=== PATIENT | female | born 1990 | race Caucasian/White ===

== ENCOUNTER 2018-08-12 18:10 | Emergency (ER) | payer OTHER ==
[2018-08-12 18:42] LABS: BILIRUBIN,URINE NEGATIVE (NEGATIVE); GLUCOSE, URINE (UA) NEGATIVE (NEGATIVE); KETONES,URINE (UA) NEGATIVE (NEGATIVE); LEUKOCYTE ESTERASE, URINE NEGATIVE (NEGATIVE); NITRITE,URINE NEGATIVE (NEGATIVE); OCCULT BLOOD,URINE NEGATIVE (NEGATIVE); PH,URINE 5.5 PH (5.0-7.5); PROTEIN,URINE NEGATIVE (NEGATIVE); UROBILINOGEN,URINE 0.2 (NORMAL) E.U./dL (NORMAL)
[2018-08-12 18:44] LABS: CLARITY,URINE CLEAR (CLEAR); HCG UR QUAL NEGATIVE
--- NOTE | 2018-08-12 18:44 | ED Physician Documentation ---
History of Present Illness - Stated complaint Stated Complaint: CHEST PX - Chief complaint Chief Complaint: General - History obtained from History obtained from: Patient - History of Present Illness Timing: Today (27-year-old woman with no significant past medical history presents with chest pain that started today around noon after a stressful conversation. It is a sharp pain that involves the right costochondral junction and is worse with twisting motions of the thorax but not deep breathing. There is no associated cough, shortness of breath, pedal edema, calf pain, she traveled by air but it has been about a month. There is no fevers.) Review of Systems Constitutional: denies: Fever, Chills Cardiac: denies: Palpitations, Pedal edema, Calf pain Respiratory: denies: Dyspnea, Cough, Hemoptysis, Wheezing PD PAST MEDICAL HISTORY - Present Medications Home Medications: Ambulatory Orders Medication Instructions Recorded Confirmed No Known Home Medications 08/12/18 08/12/18 - Allergies Allergies/Adverse Reactions: Allergies Allergy/AdvReac Type Severity Reaction Status Date / Time No Known Drug Allergies Allergy Verified 08/12/18 18:25 PD ED PE NORMAL - Vitals Vital signs reviewed: Yes - General General: Alert and oriented X 3, No acute distress - HEENT HEENT: PERRL, EOMI - Neck Neck: Supple, no meningeal sign, No bony TTP - Cardiac Cardiac: RRR, No murmur - Respiratory Respiratory: No respiratory distress, Clear bilaterally - Abdomen Abdomen: Non tender - Extremities Extremities: No edema, No calf tenderness / cord - Neuro Neuro: Alert and oriented X 3, Normal speech Results - Vitals Vitals: Vital Signs - 24 hr 08/12/18 08/12/18 18:21 20:17 Temperature 36.7 C 36.7 C Heart Rate 80 73 Respiratory 14 16 Rate Blood Pressure 127/83 H 112/74 O2 Saturation 99 100 Oxygen O2 Source Room air - EKG (time done) 1816 Rate: Rate (enter#) (84) Rhythm: NSR [place]: Normal Intervals: Normal VA QRS: Normal Ischemia: Normal ST segments Computer interpretation: Agree with computer - Labs Labs: Laboratory Tests 08/12/18 08/12/18 08/12/18 18:30 19:05 19:05 WBC 7.7 RBC 4.47 Hgb 13.1 Hct 39.6 MCV 88.6 MCH 29.4 MCHC 33.2 RDW 12.5 Plt Count 188 MPV 9.3 Neut # (Auto) 4.2 Lymph # (Auto) 2.7 [place] # (Auto) 0.6 Eos # (Auto) 0.2 Baso # (Auto) 0.0 Absolute Nucleated RBC 0.00 Nucleated RBC % 0.1 Sodium 140 Potassium 3.4 L Chloride 106 Carbon Dioxide 25 Anion Gap 9.0 BUN 20 Creatinine 0.8 Estimated GFR (MDRD) 86 L Glucose 85 Calcium 9.1 Total Bilirubin 0.6 AST 18 ALT 17 Alkaline Phosphatase 43 Troponin I Total Protein 7.9 Albumin 4.4 Globulin 3.5 Albumin/Globulin Ratio 1.3 Lipase 35 Urine Color YELLOW Urine Clarity CLEAR Urine pH 5.5 Ur Specific [place] >=1.030 H Urine Protein NEGATIVE Urine Glucose (UA) NEGATIVE Urine Ketones NEGATIVE Urine Occult Blood NEGATIVE Urine Nitrite NEGATIVE Urine Bilirubin NEGATIVE Urine Urobilinogen 0.2 (NORMAL) Ur Leukocyte Esterase NEGATIVE Ur Microscopic Review NOT INDICATED Urine Culture Comments NOT INDICATED Urine HCG, Qual NEGATIVE 08/12/18 19:05 WBC RBC Hgb Hct MCV MCH MCHC RDW Plt Count MPV Neut # (Auto) Lymph # (Auto) [place] # (Auto) Eos # (Auto) Baso # (Auto) Absolute Nucleated RBC Nucleated RBC % Sodium Potassium Chloride Carbon Dioxide Anion Gap BUN Creatinine Estimated GFR (MDRD) Glucose Calcium Total Bilirubin AST ALT Alkaline Phosphatase Troponin I < 0.04 Total Protein Albumin Globulin Albumin/Globulin Ratio Lipase Urine Color Urine Clarity Urine pH Ur Specific [place] Urine Protein Urine Glucose (UA) Urine Ketones Urine Occult Blood Urine Nitrite Urine Bilirubin Urine Urobilinogen Ur Leukocyte Esterase Ur Microscopic Review Urine Culture Comments Urine HCG, Qual - Rads (name of study) 2v chest Radiology: EMP read contemporaneously (normal) PD MEDICAL DECISION MAKING - ED course ED course: 27-year-old woman with chest pain that sounds most like costochondritis but cannot really reproduce it on exam. Started after a stressful event. There is no overt evidence of cardiac or pulmonary abnormality on exam or diagnostics. I considered pulmonary embolism in this patient. Clinically the pretest probability of pulmonary embolism is less than 15%. I applied to the PERC rules as follows: The patient's age is under 50, heart rate less than 100, oxygen saturation greater than 94%, the patient does not have a history of DVT or PE. Patient has no recent trauma or surgery. The patient has no hemoptysis. The patient is not on exogenous estrogens. The patient does not have clinical signs suggesting DVT. As such the patient ruled out for pulmonary embolism by PERC criteria. Departure - Departure Disposition: 01 Home, Self Care Clinical Impression: Chest pain Condition: Good Record reviewed to determine appropriate education?: Yes Instructions: ED Chest Pain NonCardiac Comments: Ibuprofen as needed for pain, follow-up with your doctor, next available appointment. Return for new or worsening symptoms. Your blood pressure was elevated today on check into the emergency department. This does not mean that you have hypertension, it is a common phenomenon to come to the emergency department and have elevated blood pressure. I recommend that you see your primary care physician within the week to have it rechecked when y ou are feeling better. Discharge Date/Time: 08/12/18 20:20
--- NOTE | 2018-08-12 19:09 | XRAY Report ---
Reason: chest pain Procedure Date: 08/12/2018 Accession Number: [id number] / [id number] Procedure: XR - Chest 2 View X-Ray CPT Code: 62901 FULL RESULT: EXAM: CHEST RADIOGRAPHY EXAM DATE: 08/12/2018 06:53 PM. CLINICAL HISTORY: Chest pain. COMPARISON: None. TECHNIQUE: 2 views. FINDINGS: Lungs/Pleura: No focal opacities evident. No pleural effusion. No pneumothorax. Normal volumes. Mediastinum: Heart and mediastinal contours are unremarkable. Other: None. IMPRESSION: Normal 2-view chest radiography. RADIA
[2018-08-12 19:10] LABS: BASOPHILS % (AUTO) 0.3 %; EOSINOPHILS # (AUTO) 0.2 10^3/uL (0.0-0.7); EOSINOPHILS % (AUTO) 2.2 %; HGB - HEMOGLOBIN 13.1 g/dL (12.0-16.0); LYMPHOCYTES # (AUTO) 2.7 10^3/uL (1.5-3.5); LYMPHOCYTES % (AUTO) 34.6 %; MEAN CORPUSCULAR HEMOGLOBIN 29.4 pg (27.0-31.0); MEAN CORPUSCULAR HGB CONC 33.2 g/dL (32.0-36.0); MEAN CORPUSCULAR VOLUME 88.6 fL (81.0-99.0); MEAN PLATELET VOLUME 9.3 fL (7.9-10.8); MONOCYTES # (AUTO) 0.6 10^3/uL (0.0-1.0); MONOCYTES % (AUTO) 8.5 %; NEUTROPHILS # (AUTO) 4.2 10^3/uL (1.5-6.6); NEUTROPHILS % (AUTO) 54.4 %; PLT - PLATELET COUNT 188 10^3/uL (130-450); RED BLOOD COUNT 4.47 10^6/uL (4.20-5.40); RED CELL DISTRIBUTION WIDTH 12.5 % (12.0-15.0); WHITE BLOOD COUNT 7.7 x10^3/uL (4.8-10.8)
[2018-08-12 19:22] LABS: ALBUMIN 4.4 g/dL (3.2-5.5); ALBUMIN/GLOBULIN RATIO 1.3 (1.0-2.2); BILIRUBIN,TOTAL 0.6 mg/dL (0.2-1.0); CALCIUM 9.1 mg/dL (8.5-10.3); CREATININE 0.8 mg/dL (0.4-1.0); TOTAL PROTEIN 7.9 g/dL (6.7-8.2)
[2018-08-12 20:23] VITALS: BP 112/74
== END 2018-08-12 20:20 | disposition home or self-care (01) ==
LOC: ED 18:10
DX: R07.9 Chest pain, unspecified (principal); R03.0 Elevated blood-pressure reading, without diagnosis of hypertension
CPT/HCPCS: 36415; 71046; 80053; 81001; 81003; 81025; 83690; 84484; 85025; 87086; 93005; 99283

== ENCOUNTER 2019-08-04 12:49 | Emergency (ER) | payer OTHER ==
--- NOTE | 2019-08-04 14:24 | ED Physician Documentation ---
PD HPI UPPER EXT INJURY - Stated complaint Stated Complaint: SHOULDER PX - Chief complaint Chief Complaint: Ext Problem - History obtained from History obtained from: Patient - History of Present Illness Location: Right, Shoulder Type of injury: Other Timing - onset: Today Timing - duration: Years (1) Timing - details: Gradual onset, Intermittant Improved by: Rest Worsened by: Moving, Palpating Associated symptoms: No: Weakness, Numbness, Tingling, Swelling Similar symptoms before: No diagnosis Recently seen: Not recently seen - Additonal information Additional information: There is a 28-year-old woman who is in the [place] who had an issue with her right shoulder for about a year now, had this consistent pain and occasionally which shoot into the upper arm. She was doing some home physical therapy for it and was still able to get can participate in her daily activities although she would sometimes hear this, crunching in the shoulder. It was actually getting little bit better and then today she stretched and had worse pain across the back of the shoulder. No numbness or tingling down of the fingers. She would occasiona lly take Tylenol for this pain but has not taken anything today. She is been icing it. She is never had imaging prior to today. Review of Systems Skin: denies: Rash, Lesions Musculoskeletal: reports: Extremity pain, Joint pain. denies: Extremity swelling, Joint swelling Neurologic: denies: Generalized weakness, Focal weakness, Numbness PD PAST MEDICAL HISTORY - Past Medical History Cardiovascular: None Respiratory: None Neuro: None Endocrine/Autoimmune: None GI: None HUMAN RESOURCES PSYCHOLOGIST: None : None HEENT: None Psych: None Musculoskeletal: None Derm: None - Past Surgical History Past Surgical History: No - Present Medications Home Medications: Ambulatory Orders Medication Instructions Recorded Confirmed No Known Home Medications 08/12/18 08/12/18 - Allergies Allergies/Adverse Reactions: Allergies Allergy/AdvReac Type Severity Reaction Status Date / Time No Known Drug Allergies Allergy Verified 08/04/19 13:03 - Social History Does the pt smoke?: No Smoking Status: Never smoker Does the pt drink ETOH?: No Does the pt have substance abuse?: No - Immunizations Immunizations are current?: Yes - POLST Patient has POLST: No PD ED PE NORMAL - Vitals Vital signs reviewed: Yes - General General: Alert and oriented X 3, No acute distress - HEENT HEENT: Atraumatic - Derm Derm: Normal color, Warm and dry, No rash - Extremities Extremities: No deformity, Other (The right shoulder has extremely limited internal rotation and external rotation. There is tenderness at the greater tubercle. She has 5 out of 5 chiropractic physician strength abduction of the pinky and thumb and wrist extension. Sensation is intact in the hand forearm and over the lateral deltoid.) Results - Vitals Vitals: Vital Signs - 24 hr 08/04/19 13:03 Temperature 36.8 C Heart Rate 82 Respiratory 16 Rate Blood Pressure 109/69 O2 Saturation 99 Oxygen O2 Source Room air - Rads (name of study) r shoulder Radiology: EMP read contemporaneously (neg acute), See rad report PD MEDICAL DECISION MAKING - ED course Complexity details: reviewed results, d/w patient ED course: X-ray imaging was obtained and discussed with the patient does not show any fracture. Her exam is consistent with a rotator cuff tendinopathy. We discussed management from here including taking anti-inflammatories and limiting activity for the next several days. [place] Departure - Departure Disposition: 01 Home, Self Care Clinical Impression: Tendinopathy of right shoulder Condition: Good Instructions: ED Tendinitis Rotator Cuff Follow-Up: MILAGROS Riley [Provider Group] Comments: Take ibuprofen 3 to 4 tablets every 8 hours with food for pain. Ice the shoulder. Limit activity to avoid stressing it. [place] if the pain persists.
[2019-08-04] MEDS ORDERED: IBUPROFEN 600 MG TABLET PO STA (14:49)
--- NOTE | 2019-08-04 15:11 | XRAY Report ---
Reason: shoulder pain Procedure Date: 08/04/2019 Accession Number: [id number] / [id number] Procedure: XR - Shoulder 3 View RT CPT Code: Final Report FULL RESULT: EXAM: RIGHT SHOULDER RADIOGRAPHY EXAM DATE: 08/04/2019 01:33 PM. CLINICAL HISTORY: Shoulder pain. COMPARISON: None. TECHNIQUE: 3 views. FINDINGS: Bones: Normal. No fracture or bone lesion. Joints: Abnormal widening of the acromioclavicular joint measuring 7 mm. The coracoclavicular joint and a glenohumeral joint are unremarkable. Soft tissues: The visualized hemithorax is unremarkable. No soft tissue swelling. IMPRESSION: 1. Abnormal widening of the acromioclavicular joint. 2. No fracture identified. RADIA
[2019-08-04 15:21] VITALS: BP 110/76
== END 2019-08-04 15:20 | disposition home or self-care (01) ==
LOC: ED 12:49
DX: M75.91 Shoulder lesion, unspecified, right shoulder (principal)
CPT/HCPCS: 73030; 99283; A9270

== ENCOUNTER 2019-08-22 13:06 | Outpatient (CLI) | payer OTHER ==
[2019-08-22] MEDS ORDERED: BUFFERED LIDOCAINE 10 ML SYRINGE IU ONE ×2 (13:07→14:34)
[2019-08-22] MEDS ORDERED: IOTHALAMATE MEGLUMINE 50 ML VIAL ONE (13:28)
[2019-08-22] MEDS ORDERED: GADOBUTROL 10 MMOL/10 ML VIAL ONE (13:28)
[2019-08-22] MEDS ORDERED: BUFFERED LIDOCAINE 10 ML SYRINGE ONE (13:28)
[2019-08-22] MEDS ORDERED: GADOBUTROL 10 MMOL/10 ML VIAL IVP ONE (14:34)
[2019-08-22] MEDS ORDERED: IOTHALAMATE MEGLUMINE 50 ML VIAL IVP ONE (14:34)
--- NOTE | 2019-08-22 15:22 | XRAY Report ---
Reason: RT SHOULDER PAIN Procedure Date: 08/22/2019 Accession Number: [id number] / [id number] Procedure: FL - Arthrogram Needle Placement CPT Code: Final Report FULL RESULT: EXAM: RIGHT SHOULDER ARTHROGRAPHIC INJECTION WITH FLUOROSCOPIC GUIDANCE EXAM DATE: 08/22/2019 02:44 PM. CLINICAL HISTORY: Right shoulder pain. COMPARISON: ARTHROGRAM SHOULDER RT 08/22/2019 1:35 PM. TECHNIQUE: The risks, benefits, and alternatives of the procedure were discussed with the patient. All questions were answered. Written and verbal consent were obtained. The glenohumeral joint was marked under fluoroscopy and prepped and draped in a sterile manner. Local anesthesia was performed with 1% lidocaine. A 22-gauge needle was then inserted into the glenohumeral joint. 10 mL of a solution containing 25% 1% lidocaine, 25% iodinated contrast, and a 1:200 dilution of gadolinium contrast in sterile saline was then injected. The needle was removed without immediate complication. Other: None. Fluoroscopy Time: 0.1 minutes. Number of Images: 9. FINDINGS: Bones and joints: No fracture or subluxation. Injection: Fluoroscopic images demonstrate needle placement and contrast in the glenohumeral joint. No contrast extravasation outside of the glenohumeral joint. IMPRESSION: Successful fluoroscopically guided arthrographic injection of the shoulder. RADIA
--- NOTE | 2019-08-22 16:10 | MRI Report ---
Reason: RT SHOULDER PAIN Procedure Date: 08/22/2019 Accession Number: [id number] / [id number] Procedure: MRI - Arthrogram Shoulder RT CPT Code: Final Report FULL RESULT: EXAM: RIGHT SHOULDER MRI ARTHROGRAM WITH CONTRAST EXAM DATE: 08/22/2019 03:01 PM. CLINICAL HISTORY: Right shoulder paiN. COMPARISON: SHOULDER 3 VIEW RT 08/04/2019 1:18 PM. TECHNIQUE: Multiplanar, multisequence T1-weighted and fluid-sensitive sequences of the shoulder after an arthrographic injection of dilute gadolinium, dictated under a separate exam. Other: None. FINDINGS: Acromioclavicular Region: The acromion is type II unipartite. AC joint shows moderate synovial hypertrophic change. No significant spurring. The coracoacromial and coracoclavicular ligaments are intact. There is no contrast or fluid in the subacromial/subdeltoid bursa. Glenohumeral Region: No subluxation. No loose bodies. The articular cartilage is unremarkable. The glenohumeral ligaments and joint capsule are unremarkable. Bone Marrow: No fracture, marrow edema or bone lesions. Labrum: The labrum is unremarkable. Biceps Tendon: The long head of the biceps tendon and biceps terri are intact. Musculature/Rotator Cuff: The subscapularis, supraspinatus, infraspinatus, and teres minor tendons are intact. No edema or fatty atrophy. Other: The subcutaneous tissues are unremarkable. IMPRESSION: 1. 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 2. Labrum, capsular structures, rotator cuff appear unremarkable. 3. Normal bones. No fractures, no significant chondromalacia. RADIA
== END 2019-08-22 13:07 | disposition home or self-care (01) ==
LOC: DI 13:06
PROVIDERS: ATTEND Physician Assistant
DX: M19.011 Primary osteoarthritis, right shoulder (principal)
CPT/HCPCS: 23350; 73222; 77002; A9585; Q9961

== ENCOUNTER 2020-03-18 16:38 | Emergency (ER) | payer OTHER ==
[2020-03-18 16:45] VITALS: BP 114/77
[2020-03-18] MEDS ORDERED: LIDOCAINE-EPINEPH-TETRACAINE 3 ML SYRINGE TOP STA (16:52)
--- NOTE | 2020-03-18 16:54 | ED Physician Documentation ---
PD HPI LOWER EXT INJURY - Stated complaint Stated Complaint: RT LEG PUNCTURE WOUND - Chief complaint Chief Complaint: Wound - History of Present Illness PD HPI LOW EXT INJURY LOCATION: Right, Lower leg Type of injury: Puncture wound Where injury occurred: Home Timing - onset: How many hours ago (3) Timing - details: Abrupt onset Improved by: Rest, Ice, Immobilization Worsened by: Moving, Palpating Associated symptoms: No: Weakness, Numbness, Tingling, Swelling - Treatment prior to arrival Treatment prior to arrival: 29-year-old female presents to the emergency department for evaluation of a puncture wound to her right lower mid anterior leg that she sustained when working in a garden and she tripped and she accidentally impaled the leg on a metal spike in the garden. Patient has pain with weightbearing. Reports her tetanus as up-to-date Review of Systems Constitutional: denies: Fever, Chills Throat: denies: Dental pain / toothache, Oral lesions / sores Cardiac: denies: Chest pain / pressure, Palpitations Respiratory: denies: Dyspnea GI: denies: Abdominal Pain, Abdominal Swelling : denies: Dysuria, Frequency, Hesitancy Skin: denies: Rash, Lesions Musculoskeletal: reports: Extremity pain. denies: Neck pain, Back pain, Joint pain, Extremity swelling Neurologic: denies: Generalized weakness, Focal weakness, Numbness, Headache, Head injury, LOC PD PAST MEDICAL HISTORY - Past Medical History Cardiovascular: None Respiratory: None Neuro: None Endocrine/Autoimmune: None GI: None MACHINE MOVER: None : None HEENT: None Psych: None Musculoskeletal: None Derm: None - Past Surgical History Past Surgical History: No - Present Medications Home Medications: Ambulatory Orders Medication Instructions Recorded Confirmed Cephalexin [Keflex] 500 mg PO Q6H #12 capsule 03/18/20 HYDROcod/ACETAM 5/325 [[place] 5/325] 1 each PO BID PRN #5 tablet 03/18/20 - Allergies Allergies/Adverse Reactions: Allergies Allergy/AdvReac Type Severity Reaction Status Date / Time No Known Drug Allergies Allergy Verified 03/18/20 16:45 - Social History Does the pt smoke?: No Smoking Status: Never smoker Does the pt drink ETOH?: No Does the pt have substance abuse?: No - Immunizations Immunizations are current?: Yes - POLST Patient has POLST: No PD ED PE EXPANDED - General General: Alert, No acute distress, Well developed/nourished - Extremities Extremities: Right leg (0.5 cm puncture wound with visible subcutaneous tissue seen on the right lower lateral mid leg. Patient has difficulty bearing weight on the right leg. No obvious deformity.) Results - Vitals Vitals: Vital Signs - 24 hr 03/18/20 16:40 Temperature 37.4 C Heart Rate 68 Respiratory 18 Rate Blood Pressure 114/77 O2 Saturation 99 Oxygen O2 Source Room air - Rads (name of study) tib fib Radiology: Final report received (Soft tissue laceration as above. Superimposed area of increased density is present. While this does not have an appearance of foreign body this could represent an area of calcification. However clinical correlation is recommended) Procedures - General procedure General procedure: Right lower anterior viveros wound was prepped with lidocaine epinephrine topically. It was then thoroughly rinsed with chlorhexidine and water. A small amount of devitalized tissue was trimmed from the wound edges. The wound was not closed primarily PD MEDICAL DECISION MAKING - ED course Complexity details: reviewed results, considered differential, d/w patient ED course: 29-year-old female here with a puncture wound to her right lower anterior viveros after tripping and impaling herself on a metal garden spike this afternoon. The x-ray does not show any broken bone. The wound was cleansed with soap and water and some devitalized tissue was cut away. The wound does track superiorly about 0.25 cm. We will defer primary closure given that this is a puncture wound. She will be given 3 days of Keflex for antibiotic prophylaxis as well as a limited amount of [place] as she is quite tender to walk. I have advised that she is to return to the emergency department if pain is not improving or she has any concerns of infection her tetanus is up-to-date Departure - Departure Disposition: 01 Home, Self Care Clinical Impression: Puncture wound Condition: Stable Instructions: ED Wound Puncture General Prescriptions: Cephalexin [Keflex] 500 mg PO Q6H #12 capsule HYDROcod/ACETAM 5/325 [[place] 5/325] 1 each PO BID PRN #5 tablet PRN Reason: Pain Comments: The x-ray of your leg does not show any broken bones. However you do have a puncture wound has a high risk of becoming infected. I would recommend that you cleanse the wound daily with warm soap and water and then apply any antibiotic ointment. This wound does track superiorly towards your knee about one quarter of a centimeter. I will recommend the 3 days of antibiotics as prescribed. If you have increasing pain, any redness or milky drainage or concerns of infection please return to the emergency department for reevaluation
[2020-03-18] MEDS ORDERED: BACITRACIN ZINC OINT 1 PACKET TOP STA (17:21)
--- NOTE | 2020-03-18 17:29 | XRAY Report ---
PROCEDURE: Tib/Fib RT INDICATIONS: puncture wound metal stake TECHNIQUE: 2 views of the tibia and fibula were acquired. COMPARISON: None FINDINGS: Bones: No fractures or dislocations. No suspicious bony lesions. Soft tissues: No suspicious soft tissue calcifications or masses. Soft tissue laceration is noted a nteriorly within the distal aspect of the lower extremity. There appears to be a focus of mild increa sed density within the area of laceration. IMPRESSION: Soft tissue laceration as above. Superimposed area of increased density is present. While this doesn' t have an appearance of foreign body, this could represent area of calcification. However, clinical c orrelation is recommended. Reviewed by: Kaitlyn Murray MD on 03/18/2020 5:27 PM PDT Approved by: Kaitlyn Murray MD on 03/18/2020 5:27 PM PDT Station ID: [id number]
== END 2020-03-18 18:25 | disposition home or self-care (01) ==
LOC: ED 16:38
DX: S81.831A Puncture wound without foreign body, right lower leg, initial encounter (principal); W26.8XXA Contact with other sharp object(s), not elsewhere classified, initial encounter; Y93.H2 Activity, gardening and landscaping; Y92.007 Garden or yard of unspecified non-institutional (private) residence as the place of occurrence of the external cause
CPT/HCPCS: 73590; 99283; A9270